=== PATIENT | male | born 1990 | race Caucasian/White ===

== ENCOUNTER 2023-06-21 17:51 | Emergency (ER) | payer OTHER ==
--- NOTE | 2023-06-21 18:33 | XRAY Report ---
PROCEDURE: Chest 1 View X-Ray INDICATIONS: Chest pain TECHNIQUE: One view of the chest was acquired. COMPARISON: None. FINDINGS: Surgical changes and devices: None. Lungs and pleura: No pleural effusions or pneumothorax. Mild diffuse reticulonodular pulmonary opaci ty Mediastinum: Mediastinal contours appear normal. Heart size is normal. Bones and chest wall: No suspicious bony lesions. Overlying soft tissues appear unremarkable. IMPRESSION: Mild atypical pneumonia. Reviewed by: Alverto Alvarado MD on 06/21/2023 6:32 PM PDT Approved by: Alverto Alvarado MD on 06/21/2023 6:32 PM PDT Station ID: [id number]
[2023-06-21 18:37] LABS: BASOPHILS # (AUTO) 0.1 10^3/uL (0.0-0.1); BASOPHILS % (AUTO) 0.6 %; EOSINOPHILS # (AUTO) 0.1 10^3/uL (0.0-0.7); EOSINOPHILS % (AUTO) 0.6 %; HCT - HEMATOCRIT 49.1 % (42.0-52.0); HGB - HEMOGLOBIN 16.6 g/dL (14.0-18.0); LYMPHOCYTES # (AUTO) 1.7 10^3/uL (1.5-3.5); LYMPHOCYTES % (AUTO) 21.7 %; MEAN CORPUSCULAR HEMOGLOBIN 30.3 pg (27.0-31.0); MEAN CORPUSCULAR HGB CONC 33.8 g/dL (32.0-36.0); MEAN CORPUSCULAR VOLUME 89.8 fL (80.0-94.0); MEAN PLATELET VOLUME 9.7 fL (7.4-11.4); MONOCYTES # (AUTO) 0.7 10^3/uL (0.0-1.0); MONOCYTES % (AUTO) 8.2 %; NEUTROPHILS # (AUTO) 5.4 10^3/uL (1.5-6.6); NEUTROPHILS % (AUTO) 68.8 %; PLT - PLATELET COUNT 260 10^3/uL (130-450); RED BLOOD COUNT 5.47 10^6/uL (4.70-6.10); WHITE BLOOD COUNT 7.9 x10^3/uL (4.8-10.8)
--- NOTE | 2023-06-21 18:46 | ED Physician Documentation ---
History of Present Illness - Stated complaint Stated Complaint: HIGH HEART RATE - Chief complaint Chief Complaint: Cardiac - Additonal information Additional information: I work myself 32-year-old male presents emergency department for evaluation of palpitations and the sensation that his heart is skipping a beat. This began yesterday. He denies chest pain or shortness of air. Typically he notices it when laying flat or sitting. He has had no syncopal episodes. Denies any history of tobacco use or hypertension. 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 Review of Systems Constitutional: denies: Fever Nose: reports: Reviewed and negative Cardiac: reports: Palpitations. denies: Chest pain / pressure Respiratory: denies: Dyspnea, Cough GI: reports: Reviewed and negative : reports: Reviewed and negative PD PAST MEDICAL HISTORY - Allergies Allergies/Adverse Reactions: Allergies Allergy/AdvReac Type Severity Reaction Status Date / Time No Known Drug Allergies Allergy Verified 06/21/23 17:56 PD ED PE NORMAL - General General: Alert and oriented X 3, No acute distress - HEENT HEENT: PERRL - Neck Neck: Supple, no meningeal sign - Cardiac Cardiac: RRR, No murmur - Respiratory Respiratory: No respiratory distress - Abdomen Abdomen: Normal bowel sounds, Soft Results - Vitals Vitals: Vital Signs - 24 hr 06/21/23 17:56 Temperature 36.5 C Heart Rate 60 Respiratory 16 Rate Blood Pressure 140/62 H O2 Saturation 98 Oxygen O2 Source Room air - EKG (time done) 1759 EKG releavant findings:: EKG personally interpreted by author of this note. Relevant findings are: Rate: Rate (enter#) (59) Rhythm: NSR, Other (isolated PVC) [place]: Normal Intervals: Normal NE QRS: Normal Ischemia: ST elevation c/w repol Compare to prior EKG: Old EKG unavailable Computer interpretation: Agree with computer - Labs Labs: Laboratory Tests 06/21/23 06/21/23 18:29 18:29 WBC 7.9 RBC 5.47 Hgb 16.6 Hct 49.1 MCV 89.8 MCH 30.3 MCHC 33.8 RDW 12.0 Plt Count 260 MPV 9.7 Neut # (Auto) 5.4 Lymph # (Auto) 1.7 [place] # (Auto) 0.7 Eos # (Auto) 0.1 Baso # (Auto) 0.1 Absolute Nucleated RBC 0.00 Nucleated RBC % 0.0 Sodium 138 Potassium 3.8 Chloride 101 Carbon Dioxide 30 Anion Gap 7.0 BUN 26 H Creatinine 1.2 Estimated GFR (MDRD) 70 L Glucose 103 Calcium 10.1 Total Bilirubin 1.4 H AST 28 ALT 20 Alkaline Phosphatase 57 Troponin I High Sens 32.6 H* Total Protein 7.6 Albumin 4.9 Globulin 2.7 Albumin/Globulin Ratio 1.8 Lipase 36 - Rads (name of study) cxr Relevant Findings:: Final report received (atypical pneumonia) PD Medical Decision Making - ED course Complexity details: reviewed results, re-evaluated patient, d/w patient ED course: she came in 32 oh male presents emergency department for evaluation of palpitations that he is noticed since yesterday. Has a sensation of his heart skipping a beat. Denies chest pain or shortness of air in fact he ran 6 miles prior to coming to the emergency department with no chest pain. Denies any cough or fever. Unremarkable past medical history. Here in the emergency department was placed on metal sprayer protective coating and found to be normal sinus rhythm with occasional PVCs. His EKG was nonischemic. I did obtain CBC, electrolytes and nursing staff ordered a troponin from triage. Per my interpretation all the labs were essentially unremarkable though the high- sensitivity troponin was 32. I suspect this may be due to the finding of atypical pneumonia on the chest x-ray as well as running 6 miles jsut prior to arrival. I discussed this finding with the patient and made the recommendation of antibiotics and a repeat troponin however at this time he does not want to initiate antibiotics and would prefer to speak with his flight surgeon which I have acquiesced to. I let him know that the PVCs are common and may be more common in the setting of pneumonia. However he may benefit from a Holter monitor moving forward. He was made aware that the troponin was elevated but he did not want to have that value repeated today. He is considered low risk for ACS. He is discharged home in stable condition. Departure - Departure Disposition: 01 Home, Self Care Clinical Impression: Palpitations, PVC (premature ventricular contraction), Atypical pneumonia, Elevated troponin I measurement Condition: Stable Instructions: ED Palpitations, Premature Ventricular Contract About Comments: You are seen today in the emergency department because you have been having a sensation of palpitations or skipping beat with your heart. You are denying any chest pain cough or fevers. Your labs today were all essentially normal though your troponin was mildly elevated. This was not elevated in a concerning way and could be seen in the setting of recent running as you described or in the setting of a mild pneumonia. The chest x-ray does show a mild atypical pneumonia. This may be also contributing to your palpitations and the PVCs that were seen on EKG. I offered a prescription of antibiotics to treat the pneumonia you have however declined this in favor discussing with your flight surgeon. Please discuss with her tomorrow. PVCs are quite common and are typically benign. Your flight surgeon may want to make a recommendation for referral for Holter monitor. If at any point you develop chest pain, have fainting episodes, or severely short of breath then you should return immediately to the ER. Forms: PCP List
[2023-06-21 18:49] LABS: ALBUMIN 4.9 g/dL (3.2-5.5); ALBUMIN/GLOBULIN RATIO 1.8 (1.0-2.2); BILIRUBIN,TOTAL 1.4 mg/dL (0.2-1.0); CALCIUM 10.1 mg/dL (8.5-10.3); CREATININE 1.2 mg/dL (0.6-1.3); POTASSIUM 3.8 mmol/L (3.5-4.5); TOTAL PROTEIN 7.6 g/dL (6.4-8.9)
[2023-06-21 19:04] LABS: TROPONIN I HIGH SENSITIVITY 32.6 ng/L (2.3-19.7)
[2023-06-21] MEDS: AZITHROMYCIN 250 MG TABLET PO STA (19:26)
[2023-06-21] MEDS: AMOX/CLAV 875 MG/125 MG TABLET PO STA (19:26)
[2023-06-21 19:35] VITALS: BP 135/69; O2SAT 100
== END 2023-06-21 19:36 | disposition home or self-care (01) ==
LOC: ED 17:51
DX: I49.3 Ventricular premature depolarization (principal); J18.9 Pneumonia, unspecified organism; R00.2 Palpitations; R79.89 Other specified abnormal findings of blood chemistry
CPT/HCPCS: 36415; 80053; 83690; 84484; 85025; 93005; 99284